=== PATIENT | male | born 1985 | race Caucasian/White ===

== ENCOUNTER 2016-10-16 01:06 | Emergency (ER) | payer OTHER ==
[2016-10-16 01:39] LABS: Comments Flag Yes; Hematocrit 42 % (42-52); Mean Corpuscular HGB Conc 34 g/dl (31-36); Mean Corpuscular Hemoglobin 27 pg (27-31); Mean Corpuscular Volume 81 fL (80-94); Mean Platelet Volume 6 um3 (7.4-10.4); Red Blood Count 5.13 10^6/ul (4.0-5.4); Red Cell Distribution Width 13 % (10.5-15); White Blood Count 13.1 10^3/ul (3.5-10.8)
[2016-10-16 01:40] LABS: Add Diff/Slide Review? Slide Review Added
[2016-10-16 01:41] LABS: Urine Bilirubin Negative (Negative); Urine Glucose Negative (Negative); Urine Nitrite Negative (Negative)
--- NOTE | 2016-10-16 01:47 | ED ---
I, Oh,Grisel, scribed for Emile Montesinos MD on 10/16/16 at 0135 . Psychiatric Complaint - HPI Summary HPI Summary: This 31 y/o male presents to ED for acute on chronic depression and SI worse since last evening. Pt identifies recent stressors as father's and stillborn child he had in the past 2 years. PMHx includes anxiety that is controlled with Zoloft. Pt states that he has not sought any mental health child care counselor recently, and decided to visit ED tonight to seek help. Pt has no other medical complaint at this time. - History Of Current Complaint Chief Complaint: EDMentalHealth Time Seen by Provider: 10/16/16 01:13 Hx Obtained From: Patient, Medical Records Onset/Duration: Gradual Onset Timing: Constant Severity Initially: Moderate Severity Currently: Moderate Character: Depressed Aggravating Factor(s): Recent Stress - of father and 's stillborn child Alleviating Factor(s): Nothing Associated Signs And Symptoms: Positive: Negative Related History: Positive For: Prior Psychiatric Issues - Allergies/Home Medications Allergies/Adverse Reactions: Allergies Allergy/AdvReac Type Severity Reaction Status Date / Time No Known Allergies Allergy Verified 10/16/16 01:13 Home Medications: Home Medications Sertraline HCl 100 mg PO BID 10/16/16 [History Confirmed 10/16/16] PMH/Surg Hx/FS Hx/Imm Hx Respiratory History: Reports: Hx Asthma Psychiatric History: Reports: Hx Anxiety Infectious Disease History: No Infectious Disease History: Denies: Traveled Outside the [place] in Last 30 Days - Family History Known Family History: Negative: Cardiac Disease - Social History Alcohol Use: None Hx Substance Use: No Substance Use Type: Reports: None Hx Tobacco Use: No Smoking Status (MU): Never Smoked Tobacco Review of Systems Negative: Fever Positive: Depressed All Other Systems Reviewed And Are Negative: Yes Physical Exam Triage Information Reviewed: Yes Vital Signs On Initial Exam: Initial Vitals Temp Pulse Resp BP Pulse Ox 97.6 F 51 14 129/65 97 10/16/16 01:07 10/16/16 01:07 10/16/16 01:07 10/16/16 01:07 10/16/16 01:07 Vital Signs Reviewed: Yes Appearance: Positive: Well-Appearing - depressed Skin: Positive: Warm Head/Face: Positive: Normal Head/Face Inspection Eyes: Positive: HARIS ENT: Positive: Hearing grossly normal Neck: Positive: Supple Respiratory/Lung Sounds: Positive: Clear to Auscultation, Breath Sounds Present Cardiovascular: Positive: RRR Abdomen Description: Positive: Nontender, Soft Bowel Sounds: Positive: Present Musculoskeletal: Positive: Strength/ROM Intact Neurological: Positive: Sensory/Motor Intact Diagnostics - Vital Signs Vital Signs Temp Pulse Resp BP Pulse Ox 10/16/16 01:07 97.6 F 51 14 129/65 97 - Laboratory Lab Results: Lab Results 10/16/16 10/16/16 Range/Units 01:30 01:30 WBC 13.1 H (3.5-10.8) 10^3/ul RBC 5.13 (4.0-5.4) 10^6/ul Hgb 14.0 (14.0-18.0) g/dl Hct 42 (42-52) % MCV 81 (80-94) fL MCH 27 (27-31) pg MCHC 34 (31-36) g/dl RDW 13 (10.5-15) % Plt Count 328 (150-450) 10^3/ul MPV 6 L (7.4-10.4) um3 Neut % (Auto) 42.5 (38-83) % Lymph % (Auto) 40.1 (25-47) % [place] % (Auto) 7.2 (1-9) % Eos % (Auto) 9.3 H (0-6) % Baso % (Auto) 0.9 (0-2) % Absolute Neuts (auto) 5.6 (1.5-7.7) 10^3/ul Absolute Lymphs (auto) 5.3 H (1.0-4.8) 10^3/ul Absolute Monos (auto) 0.9 H (0-0.8) 10^3/ul Absolute Eos (auto) 1.2 H (0-0.6) 10^3/ul Absolute Basos (auto) 0.1 (0-0.2) 10^3/ul Absolute Nucleated RBC 0.02 10^3/ul Nucleated RBC % 0.1 Urine Color Yellow Urine Appearance Clear Urine pH 6.0 (5-9) Ur Specific [place] 1.010 (1.010-1.030) Urine Protein Negative (Negative) Urine Ketones Negative (Negative) Urine Blood Negative (Negative) Urine Nitrate Negative (Negative) Urine Bilirubin Negative (Negative) Urine Urobilinogen Negative (Negative) Ur Leukocyte Esterase Negative (Negative) Urine Glucose Negative (Negative) Urine Ascorbic Acid * H (Negative) Result Diagrams: 10/16/16 01:30 10/16/16 01:30 Lab Statement: Any lab studies that have been ordered have been reviewed, and results considered in the medical decision making process. Course/Dx - Differential Dx/Clinical Impression Provider Diagnosis: Depression - Physician Notifications Instructed by Provider To: Admit As Inpatient Patient Is Medically Stable For: Psych Evaluation - at 0200 AM Discharge - Discharge Plan Condition: Fair Disposition: ADMITTED TO [facility] Referrals: Ismael Gomez MD [Primary Care Provider] - The documentation as recorded by the Kalia sandoval Soohyun accurately reflects the service I personally performed and the decisions made by , Emile Montesinos MD.
[2016-10-16 02:00] LABS: Benzodiazepine Urine Screen None Detected (None Detect)
[2016-10-16 02:04] LABS: ALT 17 U/L (7-52); AST 18 U/L (13-39); Acetaminophen < 15 mcg/mL; Albumin 4.3 g/dL (3.2-5.2); Alcohol < 10 mg/dL (<10); Alkaline Phosphatase 86 U/L (34-104); Anion Gap 5 mmol/L (2-11); BUN/Creatinine Ratio 9.9 (8-20); Blood Urea Nitrogen 8 mg/dL (6-24); CO2 Carbon Dioxide 26 mmol/L (22-32); Chloride 103 mmol/L (101-111); EGFR Non-African American 110.4 (>60); Globulin 3.5 g/dL (2-4); Glucose 97 mg/dL (70-100); Potassium 3.4 mmol/L (3.5-5.0); Salicylate < 2.50 mg/dL (<30); Sodium 134 mmol/L (133-145); Total Protein 7.8 g/dL (6.4-8.9)
[2016-10-16 02:14] LABS: TSH (Thyroid Stimulating Horm) 4.33 mcIU/mL (0.34-5.60)
--- NOTE | 2016-10-16 12:54 | PN ---
Progress Note - Progress Note Note: Psychiatry - Read in connection with Mental Health Evaluations part 1-3 I personally examined David and confirmed the critical aspects of his condition and history that are requiring he be admitted to psychiatry and transferred on involuntary status to a hospital with bed availability. He readily acknowledged being in a high risk situation based on suicidal thoughts, and appreciates care.
[2016-10-16 14:21] VITALS: BP 111/59
--- NOTE | 2016-10-16 22:18 | ED ---
erika Borden Timothy, scribed for Susan Russell MD on 10/16/16 at 1313 . Progress - Progress Note Progress Note: David Blakely is a 31 yo male presenting to [facility] with SI and plan, but no attempt. Documentation and labs and EKG reviewed. Pt interviewed and examined. No medical c/o. - EKG/XRAY/CT Comments: Sinus [place] @ 50 BPM, nml AV/IV, Q in III, AVF. No acute changes. - Consult/PCP Time Called: 02:45 Course/Dx - Course Course Of Treatment: David Blakely is a 31 yo male presenting to [facility] with SI and plan, but no attempt. Following his [facility]UE, he will be transferred for further observation at a higher level of care at [facility]. - Diagnoses Provider Diagnoses: Depression, Suicidal ideation - Provider Notifications Discussed Care Of Patient With: 1327 - Dr. Clemente ([facility]) - Pt accepted for transfer Instructed by Provider To: Other - transfer The documentation as recorded by the erika sandoval Timothy accurately reflects the service I personally performed and the decisions made by me, Susan Russell MD.
== END 2016-10-16 15:21 | disposition short-term general hospital (02) ==
LOC: ED 01:06
DX: F32.9 Major depressive disorder, single episode, unspecified (principal); R45.851 Suicidal ideations
CPT/HCPCS: 36415; 80053; 80307; 80320; 80329; 81003; 84443; 85025; 85060; 93005; 99285; G0480